=== PATIENT | male | born 1970 | race Caucasian/White ===

== ENCOUNTER 2017-07-16 17:53 | Emergency (ER) | payer OTHER ==
[~2017-07-16] VITALS: Ht 172.7 cm; Wt 111.1 kg
[2017-07-16] MEDS ORDERED: METFORMIN HCL500 M1 PO (18:08)
[2017-07-16] MEDS ORDERED: DICLOFENAC SODI75 MG PO (18:08)
[2017-07-16] MEDS ORDERED: OMEPRAZOLE20 MG PO (18:08)
[2017-07-16] MEDS ORDERED: ATORVASTATIN CA80 MG PO (18:08)
[2017-07-16] MEDS ORDERED: ALLOPURINOL300 MG PO (18:08)
[2017-07-16] MEDS ORDERED: VITAMIN D250000 UNIT PO (18:08)
[2017-07-16] MEDS ORDERED: JANUMET XR 1001 EACH PO (18:08)
[2017-07-16] MEDS ORDERED: METOPROLOL SUCC25 MG PO (18:09)
[2017-07-16] MEDS ORDERED: FENOFIBRATE145 MG PO (18:09)
[2017-07-16] MEDS ORDERED: PIOGLITAZONE HC15 MG PO (18:09)
[2017-07-16] MEDS ORDERED: BISOPROLOL-HCT1 EAC2 PO (18:09)
[2017-07-16] MEDS ORDERED: LISINOPRIL10 MG PO (18:09)
== END 2017-07-16 20:45 | disposition short-term general hospital (02) ==
LOC: ED 17:53
DX: S68.112A Complete traumatic metacarpophalangeal amputation of right middle finger, initial encounter (principal); S68.114A Complete traumatic metacarpophalangeal amputation of right ring finger, initial encounter; S61.210A Laceration without foreign body of right index finger without damage to nail, initial encounter; I10 Essential (primary) hypertension; Z87.891 Personal history of nicotine dependence; W31.89XA Contact with other specified machinery, initial encounter; Y93.89 Activity, other specified; Y92.009 Unspecified place in unspecified non-institutional (private) residence as the place of occurrence of the external cause
CPT/HCPCS: 73130; 80053; 85025; 96372; 96374; 96375; 99285; J0690; J1170; J2405

== ENCOUNTER 2020-10-10 13:54 | Emergency (ER) | payer OTHER ==
[~2020-10-10] VITALS: Ht 172.7 cm; Wt 111.1 kg
[~2020-10-10 13:54] MED LIST: ALLOPURINOL300 MG PO; ATORVASTATIN CA80 MG PO; BISOPROLOL-HCT1 EAC2 PO; DICLOFENAC SODI75 MG PO; FENOFIBRATE145 MG PO; JANUMET XR 1001 EACH PO; LISINOPRIL10 MG PO; METFORMIN HCL500 M1 PO; METOPROLOL SUCC25 MG PO; OMEPRAZOLE20 MG PO; PIOGLITAZONE HC15 MG PO; VITAMIN D250000 UNIT PO
== END 2020-10-10 15:51 | disposition home or self-care (01) ==
LOC: ED 13:54
DX: M54.5 Low back pain (principal); I10 Essential (primary) hypertension; R73.03 Prediabetes; Z87.891 Personal history of nicotine dependence; Z91.013 Allergy to seafood; Z79.899 Other long term (current) drug therapy; Z79.84 Long term (current) use of oral hypoglycemic drugs
CPT/HCPCS: 51798; 99283-25